=== PATIENT | female | born 1980 | race Hispanic/Latino ===

== ENCOUNTER → 2018-12-09 | Outpatient (CLI) | payer OTHER ==
[~2018-12-09] MED LIST: ACET1TAB12 PO; CIPR-295 PO; PREN1TAB89 PO
== END | disposition home or self-care (01) ==
LOC: LAB 15:23
PROVIDERS: ATTEND Obstetrics & Gynecology
DX: R21 Rash and other nonspecific skin eruption (principal)
CPT/HCPCS: 36415; 86694; 86695

== ENCOUNTER 2019-01-23 19:24 | Emergency (ER) | payer OTHER ==
[2019-01-24] MEDS ORDERED: ACETAMINOPHEN ELIXIR 160 MG/5ML UDCUP ONE (01:47)
== END 2019-01-23 20:54 | disposition home or self-care (01) ==
LOC: EDH 19:24
DX: M72.2 Plantar fascial fibromatosis (principal); M79.672 Pain in left foot

== ENCOUNTER 2019-04-16 16:56 | Emergency (ER) | payer OTHER ==
[2019-04-20 06:14] LABS: HEPATITIS A ANTIBODY IGM Negative (Negative); HEPATITIS B CORE IGM Negative (Negative); HEPATITIS Bs ANTIGEN SCREEN P Negative (Negative)
== END 2019-04-16 17:30 | disposition home or self-care (01) ==
LOC: EDH 16:56
DX: Z77.21 Contact with and (suspected) exposure to potentially hazardous body fluids (principal); Z90.49 Acquired absence of other specified parts of digestive tract
CPT/HCPCS: 36415; 80074; 86701; 87390

== ENCOUNTER 2021-08-19 23:07 | Emergency (ER) | payer OTHER ==
[~2021-08-19] VITALS: Ht 152.4 cm; Wt 94.3 kg
[2021-08-20] MEDS ORDERED: METH4TAB3 PO (01:31)
[2021-08-20] MEDS ORDERED: SOLU-MEDROL 40MG VIAL IJ ONE (02:00)
[2021-08-20 02:20] VITALS: BP 119/65
== END 2021-08-20 02:13 | disposition home or self-care (01) ==
LOC: EDH 23:07
DX: S00.83XA Contusion of other part of head, initial encounter (principal); M79.18 Myalgia, other site; M54.2 Cervicalgia; Z79.899 Other long term (current) drug therapy; V49.49XA Driver injured in collision with other motor vehicles in traffic accident, initial encounter; Y93.89 Activity, other specified; Y92.89 Other specified places as the place of occurrence of the external cause; Y99.8 Other external cause status
CPT/HCPCS: 70450; 96372; 99284; J2920

== ENCOUNTER → 2025-08-19 | Outpatient (CLI) | payer OTHER, SELFPAY ==
[~2025-08-19] MED LIST changes: +METH4TAB3 PO
--- NOTE | 2025-08-23 08:09 | HMCIMG ---
DIGITAL BILATERAL SCREENING MAMMOGRAM WITH TOMOSYNTHESIS, DATED 08/19/2025 1:00 AM CDT Technique: The digital mammographic examination of both breasts in craniocaudal and mediolateral oblique views along with CAD was obtained. Tomosynthesis of both breasts was obtained. History: This is a 44 years year-old female 6, para 4 Ab 2 for 3D screening mammogram. Patient has no family history of breast cancer. Patient complaining of tenderness upper outer quadrant of left breast Reference:Baseline mammogram. Breast composition: Breast composition B: There are scattered areas of fibroglandular density. Finding: The digital mammographic examination of both breasts in craniocaudal and mediolateral oblique view along with CAD demonstrates both breasts to BE mild to moderately heterogeneously dense. There are nodular densities seen in both breasts.. There is no evidence of any dendritic mass, cluster microcalcification or architectural distortion. The Tomosynthesis demonstrates nodule seen in both breasts more pronounced on the left.. The retromammary fat appears to be normal. IMPRESSION: Due to nodular density seen in both breasts I would recommend bilateral breast sonogram.. FINAL ASSESSMENT: ACR: BI-RAD -0. Incomplete: need additional imaging evaluation. Management: Recall for additional imaging and/or comparison with prior examination(s). Likelihood of Cancer: N/A NOTE: IF A WORK-UP OF THIS PATIENT LEADS TO A BIOPSY, PLEASE FORWARD A COPY OF THE PATHOLOGY REPORT TO OUR OFFICE REQUIRED BY SA EFFECTIVE AUGUST 17, 1994. A NEGATIVE MAMMOGRAM SHOULD NOT PRECLUDE BIOPSY OF A CLINICALLY PALPABLE SUSPICIOUS MASS, 10% OF BREAST CANCERS ARE MAMMOGRAPHICALLY OCCULT. THIS MAMMOGRAPHY FACILITY IS FULLY ACCREDITED BY THE [employer]OD AND [employer]UG [employer]ATION (FDA). THANK YOU FOR THIS REFERRAL.
== END | disposition home or self-care (01) ==
LOC: RAH 08:35
PROVIDERS: ATTEND Obstetrics & Gynecology
DX: Z12.31 Encounter for screening mammogram for malignant neoplasm of breast (principal); N63.20 Unspecified lump in the left breast, unspecified quadrant; N63.10 Unspecified lump in the right breast, unspecified quadrant; R92.323 Mammographic fibroglandular density, bilateral breasts; R92.333 Mammographic heterogeneous density, bilateral breasts
CPT/HCPCS: 77063